=== PATIENT | female | born 1955 | race Caucasian/White ===

== ENCOUNTER → 2016-05-09 | Outpatient (CLI) | payer MEDICARE, MEDICAID ==
[~2016-05-09] MED LIST: /ALEN70TA OR; /DULO30CA; /FENO48TA OR; /ONDA4TA OR; /PANT40TA PO; /RISE35TA OR; ACTO45TA OR; ALBU17IN INH; ALPHAGAN OU; ANOR1AER INH; ASPI81TA83 OR; ATOR1TAB21 PO; BACL10TA2 OR; BENI20TA11 OR; BRIM1OPD OU; BUPR75TA5 PO; CETI5TAB2; CLON0.5T PO; CYMB1CAP4 PO; DULO20CA OR; FENO48TA2 PO; FLEXERIL; FLEXERIL PO; FLUC10TA PO; FOSA70TA PO; FURO20TA2 PO; HYDR-2807 PO; LAMO100T PO; LASI20TA OR; LEVO25TA2; LEVO75TA4 PO; LIPI20TA OR; LORTAB OR; MAGN400C2 PO; MAGN500T2 PO; MELOPOW OR; METF500T PO; METF500T4 OR; METHAZOLAMIDE PO; METO12TA PO; METO25TA2 OR; NIAS500T2; NORT25CA2 OR; OMEP20TA7 OR; OXTE600T PO; PANT40TA2 PO; PATA0.2S OU; PERCOCET PO; POTA10TAB PO; POTASSIUM CITRATE1 PO; PRO AIR MDI INH; PROMETHAZINE PO; RANI150C OR; REQU3TAB OR; SUMA100T2 PO; SYNT88TA OR; TOPI100T OR; TRAM50TA2 OR; TRAVATAN EYE OU; TRAZ150T OR; TRIL600T OR; TYLE325T5 PO; VALI5TAB OR; VITAMIN D50000 UNT OR; VOLT1GEL EXT; WELL75TA; ZEGERID OR; [UNRECOGNIZED DRUG - CODE] PO; [UNRECOGNIZED DRUG - OTHER] OP
--- NOTE | 2016-05-09 11:02 | REP ---
NUCLEAR GASTRIC EMPTYING SCAN: Following the oral administration of 1 mCi of technetium-99m sulfur colloid in two scrambled eggs in 6 ounces of water multiple images of the upper abdomen are performed for 90 minutes in the anterior and posterior projections. Gastric activity is measured and the gastric emptying time is calculated. At the end of 90 minutes 29% of the ingested activity has empted from the stomach. This yields a T1/2 of 155 minutes. Normal T1/2 is 90 minutes. IMPRESSION: Mild to moderately delayed gastric emptying. Signed by Isrrael Arita MD 05/09/2016 04:14 P
== END ==
LOC: M RAD 08:08
PROVIDERS: ATTEND Internal Medicine Gastroenterology
DX: R11.2 Nausea with vomiting, unspecified (principal)
CPT/HCPCS: 78264; A9541

== ENCOUNTER → 2016-05-11 | Outpatient (CLI) | payer MEDICARE, MEDICAID ==
[~2016-05-11] VITALS: Ht 160 cm; Wt 77.8 kg
[~2016-05-11] MED LIST changes: +LIDOCAINE 2% INJ 100 MG/5 ML SDV (FOR ANES.) As Ordered ONE; +NS 1,000 ML IV SCH; +PROPOFOL 200 MG/20 ML VIAL As Ordered ONE
--- NOTE | 2016-05-11 10:15 | ROOR ---
Patient Name: Linnea Hutson Procedure Date: 05/11/2016 9:58 AM Date of : 1955 Age: 60 Room: [facility] Gender: Female Note Status: Finalized Procedure: Upper GI endoscopy Indications: Heartburn Providers: Ryan Rubio MD Referring MD: KAREN LEVIN MD Requesting Provider: Medicines: Monitored Anesthesia Care Complications: No immediate complications. Procedure: Pre-Anesthesia Assessment: - The heart rate, respiratory rate, oxygen saturations, blood pressure, adequacy of pulmonary ventilation, and response to care were monitored throughout the procedure. The Endoscope was introduced through the mouth, and advanced to the second part of duodenum. The upper GI endoscopy was accomplished without difficulty. The patient tolerated the procedure well. Findings: The Z-line was variable and was found 40 cm from the incisors. No other significant abnormalities were identified in a careful examination of the stomach. The exam of the duodenum was otherwise normal. Impression: - Z-line variable, 40 cm from the incisors. - No specimens collected. - The examination was otherwise normal. Recommendation: - Patient has a contact number available for emergencies. The signs and symptoms of potential delayed complications were discussed with the patient. Return to normal activities tomorrow. Written discharge instructions were provided to the patient. - High fiber diet. - Discharge patient to home. - Continue present medications. - Follow an antireflux regimen. - Return to referring physician. - The findings and recommendations were discussed with the patient's family. Ryan Rubio MD Ryan Rubio MD 05/11/2016 10:15:23 AM This report has been signed electronically. Number of Addenda: 0 Note Initiated On: 05/11/2016 9:58 AM Estimated Blood Loss: Estimated blood loss: none.
--- NOTE | 2016-05-11 10:29 | ROOR ---
Patient Name: Linnea Hutson Procedure Date: 05/11/2016 10:00 AM Date of : 1955 Age: 60 Room: [facility] Gender: Female Note Status: Finalized Procedure: Colonoscopy to Cecum Indications: High risk colon cancer surveillance: Personal history of colonic polyps, Last colonoscopy: 2011 Providers: Ryan Rubio MD Referring MD: KAREN LEVIN MD Requesting Provider: Medicines: Monitored Anesthesia Care Complications: No immediate complications. Procedure: Pre-Anesthesia Assessment: - The heart rate, respiratory rate, oxygen saturations, blood pressure, adequacy of pulmonary ventilation, and response to care were monitored throughout the procedure. The Colonoscope was introduced through the anus and advanced to the cecum, identified by appendiceal orifice and ileocecal valve. The colonoscopy was performed without difficulty. The patient tolerated the procedure well. The quality of the bowel preparation was good. Findings: The perianal and digital rectal examinations were normal. Non-bleeding internal hemorrhoids were found during retroflexion. The hemorrhoids were small and Grade I (internal hemorrhoids that do not prolapse). No other significant abnormalities were identified in a careful examination of the remainder of the colon. The exam was otherwise without abnormality on direct and retroflexion views. Impression: - Non-bleeding internal hemorrhoids. - The examination was otherwise normal on direct and retroflexion views. - No specimens collected. - The exam was otherwise normal to the cecum. Recommendation: - Patient has a contact number available for emergencies. The signs and symptoms of potential delayed complications were discussed with the patient. Return to normal activities tomorrow. Written discharge instructions were provided to the patient. - High fiber diet. - Discharge patient to home. - Continue present medications. - Repeat colonoscopy in 5 years for surveillance. - Return to referring physician. - The findings and recommendations were discussed with the patient's family. Ryan Rubio MD Ryan Rubio MD 05/11/2016 10:28:33 AM This report has been signed electronically. Number of Addenda: 0 Note Initiated On: 05/11/2016 10:00 AM Estimated Blood Loss: Estimated blood loss: none.
[2016-05-11 11:10] VITALS: BP 146/77
== END | disposition home or self-care (01) ==
LOC: M OPP 08:10
PROVIDERS: ATTEND Internal Medicine Gastroenterology
DX: Z12.11 Encounter for screening for malignant neoplasm of colon (principal); K64.0 First degree hemorrhoids; Z86.010 Personal history of colon polyps; R12 Heartburn; I10 Essential (primary) hypertension; E78.5 Hyperlipidemia, unspecified; E11.9 Type 2 diabetes mellitus without complications; J44.9 Chronic obstructive pulmonary disease, unspecified; G47.30 Sleep apnea, unspecified; K21.9 Gastro-esophageal reflux disease without esophagitis; E07.9 Disorder of thyroid, unspecified; Z88.0 Allergy status to penicillin; Z88.8 Allergy status to other drugs, medicaments and biological substances; Z79.84 Long term (current) use of oral hypoglycemic drugs; Z79.899 Other long term (current) drug therapy; Z87.891 Personal history of nicotine dependence
CPT/HCPCS: 43235; 99156; 99157; G0105

== ENCOUNTER → 2016-05-30 | Outpatient (REF) | payer MEDICARE, MEDICAID ==
[~2016-05-30] MED LIST changes: -LIDOCAINE 2% INJ 100 MG/5 ML SDV (FOR ANES.) As Ordered ONE; -NS 1,000 ML IV SCH; -PROPOFOL 200 MG/20 ML VIAL As Ordered ONE
[2016-05-30 14:38] LABS: BASO % 0.3 % (0.0-1.0); EOS # 0.3 K/mm3 (0.0-0.50); EOS % 4.1 % (0.0-3.0); LARGE UNSTAINED CELL # 0.1 K/mm3 (0.0-0.4); LARGE UNSTAINED CELL % 1.1 % (0.0-4.0); LYMPH # 2.6 K/mm3 (1.5-4.5); MEAN CORPUSCULAR HEMOGLOBIN 31.3 pg (27.0-33.0); MEAN CORPUSCULAR HGB CONC 32.8 g/dl (32.0-36.5); MEAN CORPUSCULAR VOLUME 95.4 fl (80.0-96.0); MONO # 0.4 K/mm3 (0.0-0.8); MONO % 4.5 % (0.0-5.0); NEUTROPHILS # 4.5 K/mm3 (1.8-7.7); PLATELET COUNT, AUTOMATED 438 k/mm3 (150-450); RED CELL DISTRIBUTION WIDTH 13.3 % (11.5-14.5); WHITE BLOOD COUNT 7.9 K/mm3 (4.0-10.0)
[2016-05-30 14:41] LABS: ALBUMIN 4.3 GM/DL (3.2-5.2); ALBUMIN/GLOBULIN RATIO 1.34 (1.00-1.93); ALKALINE PHOSPHATASE 66 U/L (45-117); ALT/SGPT 19 U/L (12-78); ANION GAP 6 MEQ/L (8-16); AST/SGOT 13 U/L (15-37); BILIRUBIN,TOTAL 0.2 MG/DL (0.2-1.0); BLOOD UREA NITROGEN 25 MG/DL (7-18); CALCIUM LEVEL 9.2 MG/DL (8.8-10.2); CARBON DIOXIDE LEVEL 29 MEQ/L (21-32); CHLORIDE LEVEL 101 MEQ/L (98-107); COMPLEMENT C3 176 MG/DL (90-180); CREATININE FOR GFR 1.36 MG/DL (0.55-1.02); GLOMERULAR FILTRATION RATE 42.1 (>45); GLUCOSE, FASTING 92 MG/DL (80-110); POTASSIUM SERUM 5.1 MEQ/L (3.5-5.1); SODIUM LEVEL 136 MEQ/L (136-145); TOTAL PROTEIN 7.5 GM/DL (6.4-8.2)
[2016-05-30 15:23] LABS: ERYTHROCYTE SEDIMENTATION RATE 37 mm/hr (0-30)
[2016-06-02 00:09] LABS: Lyme Disease IgG/IgM Antibodie <0.91 ISR (0.00-0.90); Lyme Disease IgM Ab Quantitati <0.80 index (0.00-0.79)
== END ==
LOC: M LABDRAW1 13:36
PROVIDERS: ATTEND Internal Medicine Rheumatology
DX: M35.9 Systemic involvement of connective tissue, unspecified (principal); Z79.899 Other long term (current) drug therapy

== ENCOUNTER → 2016-08-08 | Outpatient (REF) | payer MEDICARE, MEDICAID | LOC: M LAB REF 16:26 | PROVIDERS: ATTEND Internal Medicine Nephrology | DX: N39.0 Urinary tract infection, site not specified (principal) ==

== ENCOUNTER 2016-09-25 18:32 | Emergency (ER) | payer MEDICARE, MEDICAID ==
[~2016-09-25] VITALS: Ht 162.6 cm; Wt 78.6 kg
[~2016-09-25 18:32] MED LIST changes: -METF500T PO; +METF500T13 PO; -METO12TA PO; +METO1TAB87 PO; +OMEP1CAP93 PO; -[UNRECOGNIZED DRUG - CODE] PO
[2016-09-25] MEDS ORDERED: LAMO100T PO (18:55)
--- NOTE | 2016-09-25 20:20 | REPUSA ---
Clinical history: Injury, pain. Findings: The mediastinum and cardiac silhouette are within normal limits. The lungs are clear. No pl eural effusion or pneumothorax is seen. Focused images of the right thoracic ribs do not demonstrate any gross abnormality. The osseous structures and soft tissues are unremarkable. Impression: No acute findings. No rib fractures demonstrated.
[2016-09-25 21:28] VITALS: BP 178/83
--- NOTE | 2016-09-26 08:00 | REP ---
Right foot four views: Comparison is 05/30/2016. There is demineralization. Joint spaces are unremarkable. There is a small calcaneal Achilles spur. This is unchanged. There is an orthopedic screw in the talus, unchanged. There is no acute fracture or dislocation. Signed by Isrrael Bowman MD 09/26/2016 07:52 A
[2016-12-30] MEDS ORDERED: LOSA100T36 PO (11:25)
[2016-12-30] MEDS ORDERED: ALPH0.156 OU (11:25)
[2016-12-30] MEDS ORDERED: MAGN400T5 PO (11:25)
[2016-12-30] MEDS ORDERED: CALC600T31 PO (11:25)
[2016-12-30] MEDS ORDERED: PAME25CA PO (11:25)
[2016-12-30] MEDS ORDERED: QUET1TAB7 PO (11:25)
[2016-12-30] MEDS ORDERED: MELO15TA4 PO (11:25)
[2016-12-30] MEDS ORDERED: levothyroxine PO (11:25)
[2016-12-30] MEDS ORDERED: VITA200016 PO (11:25)
[2016-12-30] MEDS ORDERED: ASPI1TAB PO (11:38)
== END 2016-09-25 21:38 | disposition home or self-care (01) ==
LOC: M ED 18:32
DX: M79.671 Pain in right foot (principal); S20.211A Contusion of right front wall of thorax, initial encounter; I12.9 Hypertensive chronic kidney disease with stage 1 through stage 4 chronic kidney disease, or unspecified chronic kidney disease; E78.5 Hyperlipidemia, unspecified; N18.3 Chronic kidney disease, stage 3 (moderate); X58.XXXA Exposure to other specified factors, initial encounter; Y92.9 Unspecified place or not applicable; Y99.9 Unspecified external cause status; Y93.9 Activity, unspecified; Z88.1 Allergy status to other antibiotic agents; Z88.8 Allergy status to other drugs, medicaments and biological substances; Z88.5 Allergy status to narcotic agent; Z79.84 Long term (current) use of oral hypoglycemic drugs; Z79.899 Other long term (current) drug therapy

== ENCOUNTER → 2016-11-02 | Outpatient (REF) | payer MEDICARE, MEDICAID ==
[~2016-11-02] MED LIST changes: +ALPH0.156 OU; +ASPI1TAB PO; +CALC600T31 PO; +LOSA100T36 PO; +MAGN400T5 PO; +MELO15TA4 PO; +PAME25CA PO; +QUET1TAB7 PO; +VITA200016 PO; +levothyroxine PO
[2016-11-02 14:11] LABS: OSMOLALITY URINE 528 MOSM/KG (500-800)
[2016-11-02 14:23] LABS: FREE T4 0.77 NG/DL (0.76-1.46)
== END ==
LOC: M LAB REF 08:44
PROVIDERS: ATTEND Internal Medicine Nephrology
DX: N18.3 Chronic kidney disease, stage 3 (moderate) (principal); E87.1 Hypo-osmolality and hyponatremia

== ENCOUNTER 2017-01-13 14:10 | Day surgery (SDC) | payer MEDICARE, MEDICAID ==
[~2017-01-13] VITALS: Ht 160 cm; Wt 79.4 kg
[2017-01-13] MEDS ORDERED: VANCOMYCIN HCL 1,000 MG, VIAL MATE ADAPTER 1 EACH in D5W 250 ML IV ONE (15:15)
[2017-01-13] MEDS ORDERED: NEOSPORIN GU IRRIG 20 ML VIAL As Ordered ONE (15:33)
[2017-01-13] MEDS ORDERED: dexameTHASONE 4 MG/ML 1ML VIAL (J1100) As Ordered ONE (15:33)
[2017-01-13] MEDS ORDERED: BACITRACIN PWD 50,000 UNITS VIAL As Ordered ONE (15:33)
[2017-01-13] MEDS ORDERED: MIDAZOLAM INJ 2 MG/2 ML VIAL (J2250) As Ordered ONE (15:45)
[2017-01-13] MEDS ORDERED: KETOROLAC 60 MG/2 ML VIAL (J1885) As Ordered ONE (15:45)
[2017-01-13] MEDS ORDERED: ONDANSETRON 4MG/2ML VIAL (J2405) As Ordered ONE (15:45)
[2017-01-13] MEDS ORDERED: LIDOCAINE 2% INJ 100 MG/5 ML SDV (FOR ANES.) As Ordered ONE (15:45)
[2017-01-13] MEDS ORDERED: PROPOFOL 200 MG/20 ML VIAL As Ordered ONE (15:45)
[2017-01-13] MEDS ORDERED: fentaNYL 100 MCG/2 ML INJECTION (J3010) As Ordered ONE (15:45)
[2017-01-13] MEDS: BUPIVACAINE HCL 0.5% 30 ML VIAL As Ordered ONE ×2 (16:13→16:21)
[2017-01-13] MEDS: LIDOCAINE 2% MDV 20 ML VIAL As Ordered ONE ×2 (16:13→16:21)
[2017-01-13] MEDS ORDERED: LR 1,000 ML IV ONE (16:15)
[2017-01-13] MEDS ORDERED: ePHEDrine SULFATE 25 MG/5 ML(5MG/ML) SYRINGE As Ordered ONE (16:47)
[2017-01-13] MEDS ORDERED: MEPERIDINE 50 MG/ML 1ML VIAL (J2175) As Ordered ONE (17:02)
[2017-01-13] MEDS ORDERED: PERCOCET 5MG/325MG TAB As Ordered ONE (18:10)
[2017-01-13] MEDS ORDERED: PERCOCET 5MG/325MG TAB PO PRN (18:15)
--- NOTE | 2017-01-13 18:24 | REP ---
RIGHT FOOT, TWO VIEWS: HISTORY: Postop. Two portable radiographs were obtained with a C-ARM. The patient is status-post arthrodesis of the talocalcaneal joint space. Metal screws are present. There is anatomic alignment. Fluoroscopic time 25 seconds. IMPRESSION: The patient is status-post arthrodesis of the talocalcaneal joint space. Signed by Jorge Luis Kraus MD 01/13/2017 06:25 P
[2017-01-13 18:45] VITALS: BP 170/81
--- NOTE | 2017-01-15 09:18 | RO ---
DATE OF PROCEDURE: 01/13/2017 PREOPERATIVE DIAGNOSIS: Loss of fixation status post talar calcaneal fusion, right foot. POSTOPERATIVE DIAGNOSIS: Loss of fixation status post talar calcaneal fusion, right foot. PROCEDURE PERFORMED: Removal of screw with reinsertion with a 6.5 washer, right foot. SURGEON: Maulik Mcconnell DPM ALUMINUM CAN COLLECTOR: None. ANESTHESIA: HEMOSTASIS: None. IRRIGATION: Dilute bacitracin, neomycin and polymyxin B solution. HARDWARE UTILIZED: Re-utilized the same 6.5 mm screw, but a washer augmented the procedure. DESCRIPTION OF OPERATION: On 01/13/2017 this 61-year-old white female was taken from her hospital room to the operating room and placed on the operating room table in supine position. Following the induction of IV sedation and local anesthesia, attention was directed to the patient's right foot. The incision on the plantar surface of the foot was slightly elongated. Utilizing a Guidewire, a 2.8 mm Guidewire was applied up the previously placed screw, which had seated into the calcaneus. The screw was then removed. The foot was held in approximately 5 degrees of eversion. A washer was then added to the procedure and the screw was tightened back down, giving firm compression with no loss of fixation, no bearing of the head. This washer was flush against the calcaneus. Intraoperative C-arm imagery revealed the screws to cross the fusion site and not penetrate the ankle joint with an ankle mortise and lateral view. The wound was flushed with copious amounts of dilute bacitracin, neomycin and polymyxin B solution. The skin was coapted and maintained with #3-0 nylon in a simple interrupted type fashion and a sterile dressing was applied consisting of Adaptic, 4x4 and Krystyna. A well molded fiberglass cast was then placed on the patient's foot and leg at a right angle and a short leg cast was utilized. The patient having apparently tolerating the surgical procedure well, was taken from the OR to the recovery room with vital signs stable, patient afebrile. Postoperative instructions will be given upon discharge. The patient does have a wheelchair and crutches. Her questions were answered.
== END 2017-01-13 19:10 | disposition home or self-care (01) ==
LOC: M SDC 14:10
PROVIDERS: ATTEND Podiatrist
DX: T84.126A Displacement of internal fixation device of bone of right lower leg, initial encounter (principal); M12.871 Other specific arthropathies, not elsewhere classified, right ankle and foot; M79.671 Pain in right foot; I10 Essential (primary) hypertension; E78.5 Hyperlipidemia, unspecified; J44.9 Chronic obstructive pulmonary disease, unspecified; E11.9 Type 2 diabetes mellitus without complications; E03.9 Hypothyroidism, unspecified; F17.210 Nicotine dependence, cigarettes, uncomplicated; Z79.899 Other long term (current) drug therapy; Z79.82 Long term (current) use of aspirin; Z88.0 Allergy status to penicillin; Y79.2 Prosthetic and other implants, materials and accessory orthopedic devices associated with adverse incidents
CPT/HCPCS: 20680; 73630; J1100; J1885; J2175; J2250; J2405; J3010; J3370

== ENCOUNTER 2017-02-25 14:34 | Emergency (ER) | payer MEDICARE, MEDICAID ==
[~2017-02-25] VITALS: Ht 160 cm; Wt 77.3 kg
[2017-02-25] MEDS ORDERED: REST0.05 OP (14:54)
[2017-02-25] MEDS ORDERED: NORCO, ANEXSIA 5/325MG TABLET (HYDROcodone/ACETAMINOPHEN) PO ONE (17:15)
[2017-02-25] MEDS ORDERED: VICO5TAB16 PO (17:16)
[2017-02-25 17:35] VITALS: BP 167/89
== END 2017-02-25 17:36 | disposition home or self-care (01) ==
LOC: M ED 14:34
DX: M75.52 Bursitis of left shoulder (principal); E11.9 Type 2 diabetes mellitus without complications; I10 Essential (primary) hypertension

== ENCOUNTER → 2018-02-05 | Outpatient (REF) | payer MEDICARE, MEDICAID | LOC: M LAB REF 17:33 | DX: N39.0 Urinary tract infection, site not specified (principal) | CPT/HCPCS: 87186 ==

== ENCOUNTER → 2019-01-22 | Outpatient (CLI) | payer MEDICARE, MEDICAID ==
[~2019-01-22] MED LIST changes: -/DULO30CA; -/FENO48TA OR; -/ONDA4TA OR; -/PANT40TA PO; -ASPI1TAB PO; +ASPI81TA26 PO; -CLON0.5T PO; +CLON0.5T8 PO; +CYMB1CAP4 OR; +CYMB1CAP5; -DULO20CA OR; +FENO48TA13 PO; -FENO48TA2 PO; -LOSA100T36 PO; +LOSA100T50 PO; +MELO15TA28 PO; -MELO15TA4 PO; +ONDA-1 OR; +OXYC1TAB23 PO; -PANT40TA2 PO; +PANT40TA3 PO; -PERCOCET PO; +POTA10808 PO; -POTA10TAB PO; +PROT1TAB2 PO; +REST0.05 OP; +TRIC1TAB OR; +VICO5TAB17 PO
--- NOTE | 2019-01-22 15:04 | REP ---
CT CHEST WITHOUT CONTRAST: Low-dose screening study. HISTORY: Personal history of nicotine dependence. Comparison chest CT study February 25, 2016. FINDINGS: There is a 5 mm noncalcified pulmonary nodule in the left lower lobe on page 62 of 94 in series 201 of today's study. The previous study in 2016 showed a 4 mm nodule in this location. No other significant pulmonary nodule is appreciated. There is linear fibrosis in the right middle lobe and lingula, which is unchanged. No endobronchial lesion is seen. The study is otherwise unremarkable. There are clips in the gallbladder fossa and left upper quadrant. There appear to be old healed rib fractures on the right. IMPRESSION: Lung RADS [address] negative findings[address] Repeat screening CT study recommended 1 year. Electronically Signed by James Salinas MD 01/22/2019 03:45 P
== END ==
LOC: M RAD 13:10
PROVIDERS: ATTEND Physician Assistant
DX: Z87.891 Personal history of nicotine dependence (principal); R91.1 Solitary pulmonary nodule

== ENCOUNTER → 2020-02-11 | Outpatient (CLI) | payer MEDICARE, MEDICAID ==
[~2020-02-11] MED LIST changes: +CLON0.5T2 PO; -CLON0.5T8 PO; -FENO48TA13 PO; +FENO48TA7 PO; -HYDR-2807 PO; +HYDR-4433 PO; -LAMO100T PO; +LAMO100T3 PO; +OLOP2.5D3 OU; +PANT40TA29 PO; -PANT40TA3 PO; -PATA0.2S OU
--- NOTE | 2020-02-11 14:32 | REP ---
INDICATION: PERSONAL H/O NICOTINE DEPEND. COMPARISON: Comparison prior screening CT studies January 22, 2019 and February 25, 2016.. TECHNIQUE: Low-dose acquisition. 3 mm lung window only axial images. 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 Heart size is borderline. Axial images demonstrate right middle lobe and lingular linear fibrosis unchanged. There is a stable 4 mm noncalcified pulmonary nodule in the left lower lobe on today's study page 64 of 94 series 201. No other pulmonary nodule is or mass is appreciated. No infiltrate is seen. Study is otherwise unremarkable. IMPRESSION: Stable findings. Lung RADS category 1. Repeat screening study suggested in 1 year. <Electronically signed by Shen Salinas > 02/11/20 [id number]
== END ==
LOC: M RAD 10:28
PROVIDERS: ATTEND Physician Assistant
DX: Z87.891 Personal history of nicotine dependence (principal)

== ENCOUNTER → 2020-08-27 | Outpatient (REF) | payer MEDICARE, MEDICAID ==
[~2020-08-27] MED LIST changes: -QUET1TAB7 PO; +QUET25TA3 PO
[2020-08-27 17:53] LABS: PERCENT SATURATION 24.6 % (13.2-45.0)
== END ==
LOC: M LAB REF 17:05
PROVIDERS: ATTEND Internal Medicine Nephrology
DX: D50.9 Iron deficiency anemia, unspecified (principal)

== ENCOUNTER → 2021-02-10 | Outpatient (REF) | payer OTHER, MEDICAID ==
[~2021-02-10] MED LIST changes: -FENO48TA7 PO; +FENO48TA8 PO; +QUET1TAB17 PO; -QUET25TA3 PO
== END ==
LOC: M LAB REF 17:00
PROVIDERS: ATTEND Internal Medicine Nephrology
DX: E83.42 Hypomagnesemia (principal)

== ENCOUNTER → 2021-03-02 | Outpatient (CLI) | payer MEDICAID, OTHER ==
[~2021-03-02] MED LIST changes: +LOSA100T45 PO; -LOSA100T50 PO
== END ==
LOC: M RAD 11:13
PROVIDERS: ATTEND Physician Assistant
DX: Z87.891 Personal history of nicotine dependence (principal); R91.8 Other nonspecific abnormal finding of lung field

== ENCOUNTER → 2021-10-03 | Outpatient (CLI) | payer OTHER ==
[~2021-10-03] MED LIST changes: +ARNU1INH3 INH; +BENL200I SC; +CALC500T68 PO; +CYAN500T14 PO; +GALC120S SQ; +HYDR100T PO; +HYDR200T3 PO; +IPRA0.00 INH; +LAMI1TAB8 PO; +LINZ145C PO; +LIPI20TA PO; +MAGN400T33 PO; +METO25TA4 PO; +MIRA3350 PO; +NEXI20CA PO; +NORT50CA PO; +NORV5TAB PO; +PRED10PA PO; +REFR0.5D8 OU; +SERO1TAB3 PO; +SYNT75TA PO; +TRAM50TA2 PO; +TRAV04OPD OU; +TREL1AER INH; +TRIC145T22 PO; +VENTAER INH; +VITA100093 PO
== END ==
LOC: M LABSMTC 09:38
PROVIDERS: ATTEND Anesthesiology
DX: Z01.812 Encounter for preprocedural laboratory examination (principal); Z20.822 Contact with and (suspected) exposure to COVID-19

== ENCOUNTER 2021-10-06 09:06 | Day surgery (SDC) | payer OTHER ==
[~2021-10-06] VITALS: Ht 160 cm; Wt 81.2 kg
[~2021-10-06 09:06] MED LIST changes: +NS 1,000 ML IV ONE
[2021-10-06] MEDS ORDERED: fentaNYL 100 MCG/2 ML INJECTION As Ordered ONE (10:41)
[2021-10-06] MEDS ORDERED: LIDOCAINE 2% 100MG/5ML SDV (FOR ANES.) As Ordered ONE (10:46)
[2021-10-06] MEDS ORDERED: propofoL 200 MG/20 ML VIAL As Ordered ONE ×2 (10:46→11:04)
[2021-10-06 11:30] VITALS: BP 178/80
== END 2021-10-06 11:46 | disposition home or self-care (01) ==
LOC: M OPP 09:06
PROVIDERS: ATTEND Internal Medicine Gastroenterology
DX: Z86.010 Personal history of colon polyps (principal); R12 Heartburn; D12.3 Benign neoplasm of transverse colon; D13.0 Benign neoplasm of esophagus; D13.1 Benign neoplasm of stomach; K64.0 First degree hemorrhoids; K31.89 Other diseases of stomach and duodenum
CPT/HCPCS: 43239; 45380; 88305; J3010

== ENCOUNTER → 2021-10-22 | Outpatient (CLI) | payer OTHER ==
[~2021-10-22] MED LIST changes: +ALEN70TA87 PO; -FOSA70TA PO; -NS 1,000 ML IV ONE
== END ==
LOC: M SLEEP 20:00
PROVIDERS: ATTEND Physician Assistant
DX: G47.33 Obstructive sleep apnea (adult) (pediatric) (principal)

== ENCOUNTER → 2022-02-02 | Outpatient (CLI) | payer OTHER ==
[~2022-02-02] MED LIST changes: +OMEP40CA4 PO; +RIZA10TA2
== END ==
LOC: M LABSMTC 09:34
PROVIDERS: ATTEND Anesthesiology
DX: Z01.812 Encounter for preprocedural laboratory examination (principal); Z11.52 Encounter for screening for COVID-19

== ENCOUNTER 2022-02-07 10:17 | Day surgery (SDC) | payer OTHER ==
[~2022-02-07] VITALS: Ht 160 cm; Wt 82.0 kg
[~2022-02-07 10:17] MED LIST changes: +BSS IRRIG/VANCO(10MG)/TOBRA(5MG)/EPINEPH(1:1000-0.5CC)500ML BAG-ORONLY IR ONE; +CEFUROXIME 1MG/0.1ML INTRACAMERAL INJ As Ordered ONE; +CYCLOPENTOLATE 1% OPHTH SOLN 2 ML BTL OS SCH; +LIDOCAINE 1% 1ML PF SYRINGE (OR EYE CASES) As Ordered ONE; +LIDOCAINE 3.5 % 1ML OPHTH TOPICAL GEL OU ONE; +MIDAZOLAM INJ 2MG/2ML VIAL (J2250 PER 1MG) As Ordered ONE; +OFLOXACIN 0.3 % (OCUFLOX) OPTH SOL 5ML OS ONE; +PHENYLEPHRINE 10% OPHTH SOL 5ML OS PRN; +PHENYLEPHRINE 2.5% OPHTH SOL 2ML OS SCH; +TROPICAMIDE 1% OPHTH SOLN 15ML OS SCH
[2022-02-07 13:01] VITALS: BP 133/60
== END 2022-02-07 13:21 | disposition home or self-care (01) ==
LOC: M SDC 10:17
PROVIDERS: ATTEND Ophthalmology
DX: H25.12 Age-related nuclear cataract, left eye (principal); H57.03 Miosis; I12.9 Hypertensive chronic kidney disease with stage 1 through stage 4 chronic kidney disease, or unspecified chronic kidney disease; N18.30 Chronic kidney disease, stage 3 unspecified; E78.5 Hyperlipidemia, unspecified; M32.9 Systemic lupus erythematosus, unspecified; R73.03 Prediabetes; K21.9 Gastro-esophageal reflux disease without esophagitis; K58.8 Other irritable bowel syndrome; G43.909 Migraine, unspecified, not intractable, without status migrainosus; Z79.899 Other long term (current) drug therapy; Z79.82 Long term (current) use of aspirin; Z88.0 Allergy status to penicillin; F41.9 Anxiety disorder, unspecified; Z88.8 Allergy status to other drugs, medicaments and biological substances; Z88.1 Allergy status to other antibiotic agents; Z88.5 Allergy status to narcotic agent
CPT/HCPCS: 66982; J0697; J2250; V2632

== ENCOUNTER → 2022-02-09 | Outpatient (CLI) | payer OTHER ==
[~2022-02-09] MED LIST changes: -BSS IRRIG/VANCO(10MG)/TOBRA(5MG)/EPINEPH(1:1000-0.5CC)500ML BAG-ORONLY IR ONE; -CEFUROXIME 1MG/0.1ML INTRACAMERAL INJ As Ordered ONE; -CYCLOPENTOLATE 1% OPHTH SOLN 2 ML BTL OS SCH; -LIDOCAINE 1% 1ML PF SYRINGE (OR EYE CASES) As Ordered ONE; -LIDOCAINE 3.5 % 1ML OPHTH TOPICAL GEL OU ONE; -MIDAZOLAM INJ 2MG/2ML VIAL (J2250 PER 1MG) As Ordered ONE; -OFLOXACIN 0.3 % (OCUFLOX) OPTH SOL 5ML OS ONE; -PHENYLEPHRINE 10% OPHTH SOL 5ML OS PRN; -PHENYLEPHRINE 2.5% OPHTH SOL 2ML OS SCH; -TROPICAMIDE 1% OPHTH SOLN 15ML OS SCH
== END ==
LOC: M LABSMTC 09:14
PROVIDERS: ATTEND Anesthesiology
DX: Z01.818 Encounter for other preprocedural examination (principal); Z20.822 Contact with and (suspected) exposure to COVID-19

== ENCOUNTER 2022-02-14 08:17 | Day surgery (SDC) | payer OTHER ==
[~2022-02-14] VITALS: Ht 160 cm; Wt 81.4 kg
[~2022-02-14 08:17] MED LIST changes: +BSS IRRIG/VANCO(10MG)/TOBRA(5MG)/EPINEPH(1:1000-0.5CC)500ML BAG-ORONLY IR ONE; +LIDOCAINE 1% 1ML PF SYRINGE (OR EYE CASES) As Ordered ONE; +LIDOCAINE 3.5 % 1ML OPHTH TOPICAL GEL OU ONE; +OFLOXACIN 0.3 % (OCUFLOX) OPTH SOL 5ML OD ONE; +PHENYLEPHRINE 10% OPHTH SOL 5ML OD PRN; -RIZA10TA2; +RIZA10TA2 PO; +[UNRECOGNIZED DRUG - OTHER] IV
[2022-02-14] MEDS: TROPICAMIDE 1% OPHTH SOLN 15ML OD SCH ×2 (09:19→09:38)
[2022-02-14] MEDS: PHENYLEPHRINE 2.5% OPHTH SOL 2ML OD SCH ×2 (09:19→09:38)
[2022-02-14] MEDS: CYCLOPENTOLATE 1% OPHTH SOLN 2ML BTL OD SCH ×2 (09:19→09:38)
[2022-02-14] MEDS ORDERED: MIDAZOLAM INJ 2MG/2ML VIAL (J2250 PER 1MG) As Ordered ONE (09:57)
[2022-02-14] MEDS ORDERED: fentaNYL 100 MCG/2 ML INJECTION As Ordered ONE (10:05)
[2022-02-14 10:15] VITALS: BP 171/77
== END 2022-02-14 10:32 | disposition home or self-care (01) ==
LOC: M SDC 08:17
PROVIDERS: ATTEND Ophthalmology
DX: H25.11 Age-related nuclear cataract, right eye (principal); I10 Essential (primary) hypertension; E03.9 Hypothyroidism, unspecified; E78.5 Hyperlipidemia, unspecified; M32.9 Systemic lupus erythematosus, unspecified; R73.03 Prediabetes; K21.9 Gastro-esophageal reflux disease without esophagitis; J44.9 Chronic obstructive pulmonary disease, unspecified; Z79.82 Long term (current) use of aspirin; Z79.899 Other long term (current) drug therapy; N18.30 Chronic kidney disease, stage 3 unspecified; K58.8 Other irritable bowel syndrome; G43.909 Migraine, unspecified, not intractable, without status migrainosus; F41.9 Anxiety disorder, unspecified; Z79.52 Long term (current) use of systemic steroids; Z79.51 Long term (current) use of inhaled steroids
CPT/HCPCS: 66984; J2250; J3010; V2632

== ENCOUNTER → 2022-03-17 | Outpatient (CLI) | payer OTHER ==
[~2022-03-17] MED LIST changes: -BSS IRRIG/VANCO(10MG)/TOBRA(5MG)/EPINEPH(1:1000-0.5CC)500ML BAG-ORONLY IR ONE; -LIDOCAINE 1% 1ML PF SYRINGE (OR EYE CASES) As Ordered ONE; -LIDOCAINE 3.5 % 1ML OPHTH TOPICAL GEL OU ONE; -OFLOXACIN 0.3 % (OCUFLOX) OPTH SOL 5ML OD ONE; -PHENYLEPHRINE 10% OPHTH SOL 5ML OD PRN
== END ==
LOC: M RAD 10:57
PROVIDERS: ATTEND Physician Assistant
DX: Z12.2 Encounter for screening for malignant neoplasm of respiratory organs (principal); Z87.891 Personal history of nicotine dependence

== ENCOUNTER → 2022-08-08 | Outpatient (REF) | payer OTHER, MEDICAID ==
[~2022-08-08] MED LIST changes: -LOSA100T45 PO; +LOSA100T46 PO
[2022-08-08 20:11] LABS: TOTAL PROTEIN,RANDOM URINE 49.4 MG/DL (0.0-14.0)
== END ==
LOC: M LAB REF 17:21
PROVIDERS: ATTEND Internal Medicine Nephrology
DX: N18.32 Chronic kidney disease, stage 3b (principal)

== ENCOUNTER → 2023-04-14 | Outpatient (CLI) | payer OTHER, MEDICAID ==
[~2023-04-14] MED LIST changes: -HYDR200T3 PO; +HYDR200T46 PO
== END ==
LOC: M RAD 14:54
PROVIDERS: ATTEND Physician Assistant
DX: Z12.2 Encounter for screening for malignant neoplasm of respiratory organs (principal); Z87.891 Personal history of nicotine dependence

== ENCOUNTER → 2024-05-03 | Outpatient (CLI) | payer OTHER, MEDICAID ==
[~2024-05-03] MED LIST changes: -POTA10808 PO; +POTA10809 PO
== END ==
LOC: M RAD 14:52
PROVIDERS: ATTEND Physician Assistant
DX: Z12.2 Encounter for screening for malignant neoplasm of respiratory organs (principal); Z87.891 Personal history of nicotine dependence